=== PATIENT | female | born 1985 | race Caucasian/White ===

== ENCOUNTER → 2020-09-12 | Outpatient (CLI) | payer OTHER ==
--- NOTE | 2020-09-12 11:07 | US ---
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 Pain , agenesis right kidney. TECHNIQUE: Multiple sonographic images of the abdomen are obtained. FINDINGS: EXAM MEASUREMENTS: Liver Length: 15 cm Gallbladder Wall: .2 cm CBD: .4 cm Spleen: 9.6 cm Right Kidney: Reported agenesis Left Kidney: 13.8 x 6.8 x 4.9 cm Pancreas: Limited visualization. 2.4 cm hypoechoic prominence to the visualized pancreatic head shaniqua on may be variant anatomy or secondary to adjacent bowel gas shadowing. Liver: wnl Gallbladder: No stones seen Evidence for sonographic Flood's sign: No CBD: wnl Spleen: wnl Right Kidney: Absent Left Kidney: wnl Upper IVC: wnl Abd Aorta: wnl IMPRESSION: 1. 2.4 cm hypoechoic prominence to the visualized pancreatic head region. This appearance may be due to adjacent bowel gas shadowing. 2-3 month follow-up ultrasound recommended as a precautionary measur e. 2. No gallstones or biliary ductal dilatation. 3. Right kidney is absent in keeping with the patient's reported renal agenesis.
--- NOTE | 2020-09-12 11:08 | US ---
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 Menorrhagia TECHNIQUE: Transabdominal (TA FINDINGS: EXAM MEASUREMENTS: Uterus: 8.1 x 4.9 x 5.0 cm Endometrial Stripe: 1.0 cm Left Ovary: 2.6 x 1.7 x 2.3 cm 1. Uterus: Anteverted and otherwise wnl 2. Endometrium: wnl 3. Right Ovary: Obscured by overlying bowel gas 4. Left Ovary: wnl 5. Bilateral Adnexa: wnl 6. Posterior cul-de-sac: wnl IMPRESSION: 1. Unable to visualize the right ovary due to bowel gas and the adnexa. 2. Otherwise, unremarkable transabdominal sonographic examination of the pelvis.
== END | disposition home or self-care (01) ==
LOC: RADUSWWP 08:52
PROVIDERS: ATTEND Family Medicine
DX: Q60.0 Renal agenesis, unilateral (principal); R93.3 Abnormal findings on diagnostic imaging of other parts of digestive tract; N92.0 Excessive and frequent menstruation with regular cycle; Z90.5 Acquired absence of kidney
CPT/HCPCS: 76700; 76856

== ENCOUNTER → 2021-01-11 | Outpatient (CLI) | payer OTHER ==
--- NOTE | 2021-01-11 09:31 | US ---
EXAMINATION TYPE: US abdomen complete DATE OF EXAM: 01/11/2021 COMPARISON: 09/12/2020 CLINICAL HISTORY: R93.5 ABN ABD ULTRASOUND. follow up ultrasound. 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 Prominent column of amber Upper IVC: wnl Abd Aorta: No AAA visualized The liver is homogenous. The intrahepatic portion of the IVC and proximal abdominal aorta are within normal limits. There is no evidence of cholelithiasis. Common bile duct is unremarkable. The visu alized portions of the pancreas are homogenous. The spleen is unremarkable. Kidneys are symmetric a nd free of hydronephrosis. No renal lesions are seen. IMPRESSION: 1. Absence of the right kidney. 2. The previously seen hypoechoic tissue in the pancreatic head is not seen on this examination, yu arnulfo, ultrasound is insensitive for pancreatic lesion and if there is clinical concern, CT is recommen ded.
== END | disposition home or self-care (01) ==
LOC: RADUSWWP 08:48
PROVIDERS: ATTEND Family Medicine
DX: R93.5 Abnormal findings on diagnostic imaging of other abdominal regions, including retroperitoneum (principal); Z90.5 Acquired absence of kidney
CPT/HCPCS: 76700

== ENCOUNTER → 2021-03-20 | Outpatient (CLI) | payer OTHER ==
[2021-03-20 17:25] LABS: African American GFR (CKD) >90 (>60 ml/min/1.73 sqM); Blood Urea Nitrogen 11 mg/dL (7-17); Non-African American GFR(CKD) >90 (>60 ml/min/1.73 sqM)
--- NOTE | 2021-03-20 21:32 | CT ---
EXAMINATION TYPE: CT abdomen w con DATE OF EXAM: 03/20/2021 HISTORY: abnormal US, possible pancreatic lesion CT DLP: 359.5mGycm Automated Exposure Control for Dose Reduction was Utilized. CONTRAST: CT scan of the abdomen is performed with oral and with IV Contrast, patient injected with 100 mL of I sovue 300. COMPARISON: Ultrasound abdomen January 11, 2021 and September 12, 2020 FINDINGS: LUNG BASES: No significant abnormality is appreciated. LIVER/GB: Prominent left hepatic lobe. PANCREAS: Normal sized pancreas. No suspicious solid or cystic mass or ductal dilatation. SPLEEN: No significant abnormality is seen. ADRENALS: No significant abnormality is seen. KIDNEYS: Right kidney congenitally absent. Left kidney shows satisfactory cortical medullary uptake a nd excretion without hydronephrosis. BOWEL: Oral contrast only reaches distal jejunal loops in the left and central abdomen making evaluat ion suboptimal. Also difficult evaluation due to lack of intra-abdominal fat. No suspicious small or large bowel dilatation. UTERUS/ADNEXA: Visualized portion of the upper uterus unremarkable. Right ovary is seen in the anteri or pelvis axial image 50 with 2.2 cm prominent follicle or simple small ovarian cyst. LYMPH NODES: No greater than 1cm abdominal lymph nodes are appreciated. OSSEOUS STRUCTURES: Underlying rotary scoliosis with partial visualization of attempted Dan ro d correction. OTHER: No significant additional abnormality is seen. IMPRESSION: No suspicious pancreatic head mass.
== END | disposition home or self-care (01) ==
LOC: RADCTMAIN 16:49
PROVIDERS: ATTEND Family Medicine
DX: R93.5 Abnormal findings on diagnostic imaging of other abdominal regions, including retroperitoneum (principal)
CPT/HCPCS: 82565; 84520; 74160; 36415; Q9967

== ENCOUNTER 2021-05-13 21:17 | Emergency (ER) | payer OTHER ==
[2021-05-13 21:45] VITALS: PULSE 105; TEMP 98
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
[2021-05-13 23:20] VITALS: BP 135/84; RESP 20
== END 2021-05-13 23:20 | disposition home or self-care (01) ==
LOC: EC 21:17
DX: S20.219A Contusion of unspecified front wall of thorax, initial encounter (principal); V49.9XXA Car occupant (driver) (passenger) injured in unspecified traffic accident, initial encounter; Y92.410 Unspecified street and highway as the place of occurrence of the external cause
CPT/HCPCS: 71046; 72072; 93005; 99285

== ENCOUNTER → 2021-05-24 | Outpatient (CLI) | payer OTHER ==
--- NOTE | 2021-05-24 12:45 | XR ---
EXAMINATION TYPE: XR chest 2V DATE OF EXAM: 05/24/2021 COMPARISON: 05/13/2021 INDICATION: Contusion right chest wall TECHNIQUE: Frontal and lateral views of the chest are obtained. FINDINGS: The heart size is normal. The pulmonary vasculature is normal. Some mild right lower lobe increased opacity is present. Correlate for atelectasis and pulmonary cont usion. Findings appear similar. There may be some improvement over the interval. Scoliosis with fixa tion rods are again evident IMPRESSION: 1. Suspected right lower lobe pulmonary contusion or infiltrate. There may some improvement. Continue d follow-up is recommended.
== END | disposition home or self-care (01) ==
LOC: RADXRMAIN 11:32
PROVIDERS: ATTEND Family Medicine
DX: S20.211A Contusion of right front wall of thorax, initial encounter (principal)
CPT/HCPCS: 71046

== ENCOUNTER → 2021-06-04 | Outpatient (CLI) | payer OTHER ==
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
== END | disposition home or self-care (01) ==
LOC: RADXRMAIN 10:01
PROVIDERS: ATTEND Family Medicine
DX: S29.9XXA Unspecified injury of thorax, initial encounter (principal); V89.2XXA Person injured in unspecified motor-vehicle accident, traffic, initial encounter
CPT/HCPCS: 71046

== ENCOUNTER → 2024-05-17 | Outpatient (CLI) | payer OTHER ==
--- NOTE | 2024-05-18 11:00 | MM ---
Reason for Exam: Screening (asymptomatic). Patient History: Menarche at age 9. Patient has no children. Premenopausal. Patient has history of breast feeding. Last menstrual period: 05/05/2024 Risk Values: Therese 5 year model risk: 0.7%. NCI Lifetime model risk: 12.0%. Tissue Density: The breasts are extremely dense, which lowers the sensitivity of mammography. Findings: Analyzed By CAD. Right breast: There is no suspicious group of microcalcifications or new suspicious mass. Left breast: There is no suspicious group of microcalcifications or new suspicious mass. Overall Assessment: Negative, BI-RAD 1 Management: Screening Mammogram of both breasts in [address] [facility] will attempt to contact patient to return for supplemental views and ultrasound if indicated. Patient should continue monthly self-breast exams. A clinical breast exam by your physician is recommended on an annual basis. This exam should not preclude additional follow-up of suspicious palpable abnormalities. Note on Therese scores and lifetime risk: 1. A Therese score greater than 3% is considered moderate risk. If this is the case, consider specialist referral to assess eligibility for a risk reducing agent. 2. If overall lifetime risk for the development of breast cancer is 20% or higher, the patient may qualify for future screening with alternating mammogram and breast MRI. [facility], , 05/18/2024 10:51 AM. Electronically signed and approved by: Flakito Gage DO
== END | disposition home or self-care (01) ==
LOC: RADMAMWWP 15:43
PROVIDERS: ATTEND Family Medicine
DX: Z12.31 Encounter for screening mammogram for malignant neoplasm of breast (principal); R92.343 Mammographic extreme density, bilateral breasts
CPT/HCPCS: 77063; 77067